=== PATIENT | male | born 1990 | race American Indian/Alaskan Native ===

== ENCOUNTER 2017-06-06 17:34 | Emergency (ER) | payer SELFPAY ==
[2017-06-06 17:35] VITALS: BMI 23.8
[2017-06-06 17:42] VITALS: TEMP 98.9
[2017-06-06] MEDS ORDERED: Naproxen 550 mg Tab PO STA (18:14)
[2017-06-06] MEDS ORDERED: Naproxen 550 mg Tab PO ONE (18:23)
--- NOTE | 2017-06-06 18:56 | C.PDOC ---
History Of Present Illness 27-year-old male, presents to the emergency department with complaints of knee pain s/p fall on stairs at 4pm. He notes his knee bent the wrong way, and he is able to limp on it. Pain is aggravated by ambulation. No changes in sensation. Denies numbness/weakness, fevers , head injury , loc or any other associated symptoms. Time Seen by Provider: 06/06/17 17:54 Chief Complaint (Nursing): Lower Extremity Problem/Injury History Per: Patient History/Exam Limitations: no limitations Onset/Duration Of Symptoms: Days Current Symptoms Are (Timing): Still Present Past Medical History Reviewed: Historical Data, Nursing Documentation, Vital Signs Vital Signs: Last Vital Signs Temp 98.9 F 06/06/17 17:38 Pulse 70 06/06/17 19:17 Resp 16 06/06/17 19:17 BP 112/58 L 06/06/17 19:17 Pulse Ox 100 06/06/17 22:49 - Medical History PMH: Fractures (LEFT ARM FOREARM CASTED) - [facility] APPLICATION OF SPLINT (08/17/13) OTHER REPAIR OF HAND FINGERS AND WRIST (09/08/13) Family History: States: No Known Family Hx - Social History Hx Tobacco Use: No Hx Alcohol Use: Yes Hx Substance Use: No - Immunization History Hx Tetanus Toxoid Vaccination: No Hx Influenza Vaccination: No Hx Pneumococcal Vaccination: No Review Of Systems Except As Marked, All Systems Reviewed And Found Negative. Constitutional: Negative for: Fever, Chills Respiratory: Negative for: Shortness of Breath Gastrointestinal: Negative for: Vomiting Musculoskeletal: Positive for: Other (knee pain) Neurological: Negative for: Weakness, Numbness Physical Exam - Physical Exam Appears: Non-toxic, No Acute Distress Skin: Warm, Dry, No Rash Head: Atraumatic, Normacephalic Eye(s): bilateral: Normal Inspection, EOMI Nose: Normal Oral Mucosa: Moist Neck: Normal ROM, Supple Chest: Symmetrical Respiratory: No Accessory Muscle Use Extremity: No Pedal Edema, No Calf Tenderness, No Deformity, Other (decreased range of motion secondary to pain with mild swelling ) Extremity: Bilateral: Normal Color And Temperature Pulses: Left Dorsalis Pedis: Normal, Right Dorsalis Pedis: Normal Neurological/Psych: Oriented x3, Normal Speech, Normal Sensation ED Course And Treatment O2 Sat by Pulse Oximetry: 100 (on RA) Pulse Ox Interpretation: Normal - Other Rad XR R KNEE X-Ray: Interpreted by Me, Viewed By Me Interpretation: No fracture or dislocation, patella appears more superior Progress Note: XR R knee ordered and reviewed. Patient treated with Naproxen. On reassessment, patient is resting comfortably, and is in no acute distress. Patient was instructed to follow up with physician/clinic in 1-2 days for further evaluation. Pt was informed that XR can not evaluated tendons and ligaments , therefore further evaluated by ortho is suggested. Disposition - Disposition Referrals: David Kern MD [Staff Provider] - Disposition: HOME/ ROUTINE Disposition Time: 18:53 Condition: STABLE Additional Instructions: Rest, ice and elevate the area. Follow up with your bone doctor in 1-2 days. Return to ER if symptoms persist or worsen. Prescriptions: Naproxen [Naprosyn] 1 tab PO BID PRN #20 tab PRN Reason: Pain Instructions: Knee Sprain (ED) Forms: [facility] (Malagasy), Work Excuse - Clinical Impression Clinical Impression: Knee sprain - Scribe Statement The provider has reviewed the documentation as recorded by the Scribe (Gaetano Spencer) All medical record entries made by the Scribe were at my direction and personally dictated by me. I have reviewed the chart and agree that the record accurately reflects my personal performance of the history, physical exam, medical decision making, and the department course for this patient. I have also personally directed, reviewed, and agree with the discharge instructions and disposition.
[2017-06-06 19:18] VITALS: BP 112/58; PULSE 70; RESP 16
[2017-06-06 19:58] VITALS: O2SAT 100
--- NOTE | 2017-06-07 08:47 | RAD ---
PROCEDURE: Right Knee Radiographs. HISTORY: trauma COMPARISON: None. FINDINGS: BONES: Normal. No fracture. JOINTS: Normal. No osteoarthritis. JOINT EFFUSION: None. OTHER FINDINGS: None. IMPRESSION: Normal radiographs of the right knee.
== END 2017-06-06 19:17 | disposition home or self-care (01) ==
LOC: C.ER 17:34
DX: S83.91XA Sprain of unspecified site of right knee, initial encounter (principal); W10.9XXA Fall (on) (from) unspecified stairs and steps, initial encounter